=== PATIENT | female | born 1965 ===

== ENCOUNTER 2017-08-19 09:02 | Emergency (ER) | payer OTHER ==
[2017-08-19 09:23] VITALS: O2SAT 98
--- NOTE | 2017-08-19 09:44 | C.PDOC ---
History Of Present Illness 52 year old female presents to the ED with complaints of lower back pain for three weeks that radiates down the left leg. Patient notes experiencing similar pain in the past and has not taken medication for pain. She denies trauma, weakness, numbness, fever, or urinary symptoms. Time Seen by Provider: 08/19/17 09:43 Chief Complaint (Nursing): Back Pain History Per: Patient History/Exam Limitations: no limitations Onset/Duration Of Symptoms: Persistent Current Symptoms Are (Timing): Still Present Quality Of Discomfort: "Pain" Previous Symptoms: Back Pain Associated Symptoms: None Recent travel outside of the [place]: No Past Medical History Reviewed: Historical Data, Nursing Documentation, Vital Signs Vital Signs: Last Vital Signs Temp 98.2 F 08/19/17 10:06 Pulse 82 08/19/17 10:06 Resp 18 08/19/17 10:06 BP 132/76 08/19/17 10:06 Pulse Ox 98 08/19/17 11:40 - Medical History PMH: Depression, HTN, Hypercholesterolemia Family History: States: Other Other Family History: Non-contributory. - Social History Hx Tobacco Use: No Hx Alcohol Use: No Hx Substance Use: No - Immunization History Hx Tetanus Toxoid Vaccination: No Hx Influenza Vaccination: No Hx Pneumococcal Vaccination: No Review Of Systems Except As Marked, All Systems Reviewed And Found Negative. Constitutional: Negative for: Fever Genitourinary: Negative for: Dysuria Neurological: Negative for: Weakness, Numbness Physical Exam - Physical Exam Appears: Non-toxic, No Acute Distress Skin: Warm, Dry Head: Atraumatic Eye(s): bilateral: PERRL, EOMI Oral Mucosa: Moist Neck: Normal ROM, Supple Back: Paraspinal Tenderness (paraspinous lumbar tenderness ) Extremity: Normal ROM, No Tenderness Neurological/Psych: Oriented x3, Normal Cranial Nerves, No Cerebellar Signs, Normal Motor, Normal Sensation, Normal Reflexes (reflexes symmetrical ) Gait: Steady ED Course And Treatment O2 Sat by Pulse Oximetry: 98 (room air ) Progress Note: Patient was given Toradol. Disposition - Disposition Disposition: HOME/ ROUTINE Disposition Time: 10:45 Condition: STABLE Additional Instructions: Please follow up with your doctor. Return to the ER for any worsening symptoms or for any other concerns. Prescriptions: Acetaminophen [Shake That Ache] 1,000 mg PO Q6H PRN #12 tablet PRN Reason: Pain, Moderate (4-7) Cyclobenzaprine [Cyclobenzaprine HCl] 10 mg PO TID PRN #20 tab PRN Reason: Pain, Severe (8-10) Naproxen [Naprosyn] 500 mg PO Q12H PRN #10 tablet PRN Reason: Pain, Moderate (4-7) Instructions: Acute Low Back Pain (ED) Forms: Gen Discharge Inst Estonian, [facility] (Uzbek), Work Excuse - Clinical Impression Clinical Impression: Sciatica - Scribe Statement The provider has reviewed the documentation as recorded by the Alannahibdenis Landaverde All medical record entries made by the Alannahibdenis were at my direction and personally dictated by me. I have reviewed the chart and agree that the record accurately reflects my personal performance of the history, physical exam, medical decision making, and the department course for this patient. I have also personally directed, reviewed, and agree with the discharge instructions and disposition.
[2017-08-19 10:07] VITALS: BP 132/76; PULSE 82; RESP 18; TEMP 98.2
== END 2017-08-19 10:25 | disposition home or self-care (01) ==
LOC: C.ER 09:02
DX: M54.32 Sciatica, left side (principal)
CPT/HCPCS: 96372; 99283; J1885

== ENCOUNTER 2018-01-31 08:07 | Emergency (ER) | payer OTHER ==
[2018-01-31 08:12] VITALS: BMI 30.6
[2018-01-31] MEDS ORDERED: Sodium Chloride 0.9% 1,000 ML IV ONE (08:42)
--- NOTE | 2018-01-31 08:51 | C.PDOC ---
History Of Present Illness 52 year old female with a past medical history of gastritis who presents to the emergency department with a complaint of an abdominal pain associated with nausea, constipation, burning sensation with urination, and generalized weakness that started on 01/29/2018. Reports she did not take medications for the discomfort. Denies shortness of breath, chest pain, or diarrhea. Time Seen by Provider: 01/31/18 08:20 Chief Complaint (Nursing): Abdominal Pain History Per: Patient History/Exam Limitations: no limitations Onset/Duration Of Symptoms: Days Past Medical History Reviewed: Historical Data, Nursing Documentation, Vital Signs Vital Signs: Last Vital Signs Temp 98.1 F 01/31/18 10:28 Pulse 69 01/31/18 10:28 Resp 20 01/31/18 10:28 BP 112/68 01/31/18 10:28 Pulse Ox 98 01/31/18 18:21 - Medical History PMH: Depression, HTN, Hypercholesterolemia Surgical History: No Surg Hx Family History: States: Unknown Family Hx - Social History Hx Tobacco Use: No Hx Alcohol Use: No Hx Substance Use: No - Immunization History Hx Tetanus Toxoid Vaccination: No Hx Influenza Vaccination: No Hx Pneumococcal Vaccination: No Review Of Systems Except As Marked, All Systems Reviewed And Found Negative. (As per HPI, otherwise negative) Constitutional: Positive for: Weakness (generalized) Cardiovascular: Negative for: Chest Pain Respiratory: Negative for: Shortness of Breath Gastrointestinal: Positive for: Nausea, Abdominal Pain, Constipation. Negative for: Diarrhea Genitourinary: Positive for: Dysuria Physical Exam - Physical Exam Appears: Well, Non-toxic, Toxic Skin: Normal Color, Warm, Dry Neck: Normal Chest: Symmetrical Cardiovascular: Rhythm Regular Respiratory: Normal Breath Sounds, No Decreased Breath Sounds, No Accessory Muscle Use Gastrointestinal/Abdominal: No Normal Exam, Bowel Sounds (Present), Soft, Tenderness (Epigastric), No Guarding, No Rebound Back: Normal Inspection Extremity: Normal ROM Neurological/Psych: Oriented x3 Gait: Steady ED Course And Treatment - Laboratory Results Result Diagrams: 01/31/18 09:11 01/31/18 09:11 O2 Sat by Pulse Oximetry: 98 (RA) Pulse Ox Interpretation: Normal Medical Decision Making Medical Decision Making: Time:841 --CMP --Lipase --Troponin I --CBC w/ diff --Toradol 30 mg IVP --Zofran 4 mg IVP --Protonix 40 mg IVP --Sodium Chloride 1L IV --Urinalysis --Obstructive Series --Reevaluation Time: 913 --Obstructive Series FINDINGS: CHEST: Lungs: Clear. Cardiovascular: Normal size heart. No pulmonary vascular congestion. Pleura: No pleural fluid. No pneumothorax. Other findings: None. ABDOMEN AND PELVIS: Bowel: Unremarkable bowel gas pattern. No evidence of mechanical obstruction. Free air: None. Bones: Unremarkable. Other findings: None. IMPRESSION: Unremarkable radiographs of chest and abdomen. No evidence of mechanical bowel obstruction. Time: 1020 --Patient will be discharge home with an Rx for Nexium 40 mg and Zofran 4 mg. Follow up with PMD within 2 days. Patient states improvement in symptoms at this time Clinical Impression: Gastritis Disposition Counseled Patient/Family Regarding: Studies Performed, Diagnosis, Need For Followup, Rx Given - Disposition Referrals: Sanjuanita Rothman MD [Medical Doctor] - Disposition: HOME/ ROUTINE Disposition Time: 10:21 Condition: STABLE Additional Instructions: follow up with your doctor or medical clinic in 2 days call to make an appointment take medication as prescribed return to ER if symptoms worsens or progress Prescriptions: Esomeprazole Magnesium [Nexium] 40 mg PO DAILY #15 capsule. Ondansetron ODT [Zofran ODT] 4 mg PO TID PRN #12 odt PRN Reason: Nausea/Vomiting Instructions: Gastritis, Acute Abdomen (Belly Pain), Adult (DC) Forms: Gen Discharge Inst Sami, [employer] (Sami) Print Language: MOSOTHO - Clinical Impression Clinical Impression: Abdominal pain - Scribe Statement Pattie
--- NOTE | 2018-01-31 09:15 | RAD ---
PROCEDURE: Radiographs of the chest and abdomen (obstructive series) HISTORY: abd pain COMPARISON: Chest radiograph dated 01/30/2017 ; no prior relevant abdominal imaging. TECHNIQUE: AP radiograph of the chest, with upright and supine radiographs of the abdomen. FINDINGS: CHEST: Lungs: Clear. Cardiovascular: Normal size heart. No pulmonary vascular congestion. Pleura: No pleural fluid. No pneumothorax. Other findings: None. ABDOMEN AND PELVIS: Bowel: Unremarkable bowel gas pattern. No evidence of mechanical obstruction. Free air: None. Bones: Unremarkable. Other findings: None. IMPRESSION: Unremarkable radiographs of chest and abdomen. No evidence of mechanical bowel obstruction.
[2018-01-31 09:16] LABS: BASO # 0.1 K/uL (0.0-0.2); BASO % 0.9 % (0.0-2.0); EOS # 0.1 K/uL (0.0-0.7); EOS % 0.8 % (0.0-4.0); HEMOGLOBIN 13.1 g/dL (11.0-16.0); LYMPH # 2.7 K/uL (1.0-4.3); LYMPH % 38.1 % (20.0-40.0); MEAN CELL VOLUME 88.9 fL (81.0-99.0); MEAN CORPUSCULAR HEMOGLOBIN 31.1 pg (27.0-31.0); MEAN PLATELET VOLUME 9.2 fL (7.2-11.7); MONO # 0.5 K/uL (0.0-0.8); MONO % 6.6 % (0.0-10.0); NEUT # 3.8 K/uL (1.8-7.0); NEUT % 53.6 % (50.0-75.0); NRBC % 0.1 % (0.0-2.0); RBC 4.22 Mil/uL (3.80-5.20); RED CELL DISTRIBUTION WIDTH 13.5 % (11.5-14.5); WHITE BLOOD COUNT 7.2 K/uL (4.8-10.8)
[2018-01-31 09:35] LABS: SQUAMOUS EPITHIAL 2 /hpf (0-5); URINE BILIRUBIN NEGATIVE (NEGATIVE); URINE BLOOD NEGATIVE (NEGATIVE); URINE CLARITY Clear (Clear); URINE COLOR Yellow (YELLOW); URINE GLUCOSE (UA) NORMAL (Normal); URINE LEUKOCYTE ESTERASE TRACE Leu/uL (Negative); URINE NITRATE NEGATIVE (NEGATIVE); URINE PROTEIN NEGATIVE (NEGATIVE); URINE UROBILINOGEN NORMAL mg/dL (0.2-1.0)
[2018-01-31 09:49] LABS: ALB/GLOB RATIO 1.2 (1.0-2.1); ALBUMIN 4.1 g/dL (3.5-5.0); ALT/SGPT 46 U/L (9-52); AST/SGOT 44 U/L (14-36); BLOOD UREA NITROGEN 20 mg/dL (7-17); CALCIUM 9.1 mg/dl (8.6-10.4); GFR AFRICAN-AMERICAN > 60; GFR NON-AFRICAN AMERICAN > 60; LIPASE 169 U/L (23-300)
[2018-01-31 10:29] VITALS: BP 112/68; PULSE 69; RESP 20; TEMP 98.1
[2018-01-31 10:35] VITALS: O2SAT 98
== END 2018-01-31 10:45 | disposition home or self-care (01) ==
LOC: C.ER 08:07
DX: R10.9 Unspecified abdominal pain (principal); I10 Essential (primary) hypertension; E78.00 Pure hypercholesterolemia, unspecified
CPT/HCPCS: 74022; 80053; 81001; 83690; 84484; 85025; 96361; 96374; 96375; 99284; C9113; J1885; J2405; J7040